=== PATIENT | male | born 1965 | race Two or more races ===

== ENCOUNTER 2019-05-12 15:27 | Emergency (ER) | payer BC ==
[~2019-05-12] VITALS: Ht 180.3 cm; Wt 86.0 kg
[2019-05-12] MEDS ORDERED: BACITRACIN ZINC OINT UDPKT TOP ONE (16:30)
[2019-05-12] MEDS ORDERED: TETANUS, DIPHTHERIA, PERTUSSIS VAC/PF 0.5ML (>7YR OLD) IM ONE (16:45)
[2019-05-12 16:48] VITALS: BP 131/74
== END 2019-05-12 16:52 | disposition home or self-care (01) ==
LOC: ER 15:27
DX: S61.315A Laceration without foreign body of left ring finger with damage to nail, initial encounter (principal); W45.8XXA Other foreign body or object entering through skin, initial encounter; Y93.89 Activity, other specified; Y92.89 Other specified places as the place of occurrence of the external cause
CPT/HCPCS: 90471; 90715; 99283